=== PATIENT | female | born 1935 | race Caucasian/White ===

== ENCOUNTER 2016-12-03 19:01 | Inpatient (IN) | payer OTHER, MEDICAID ==
[~2016-12-03] VITALS: Ht 152.4 cm; Wt 82.3 kg
[2016-12-03] MEDS ORDERED: HYDR12.529 PO (19:07)
[2016-12-03 22:01] LABS: BASOPHILS % 0.4 % (0.0-2.0); HEMATOCRIT. 33.6 % (36.0-48.0); HEMOGLOBIN. 11.4 g/dL (12.0-16.0); LYMPHOCYTES % 7.2 % (20.0-50.0); MEAN CORPUSCULAR HEMOGLOBIN 28.7 pg (28.0-32.0); MEAN CORPUSCULAR VOLUME 84.8 fL (81.0-99.0); MEAN PLATELET VOLUME 7.9 fl (7.4-10.4); MONOCYTES % 9.5 % (2.0-8.0); NEUTROPHILS % 82.9 % (40.0-76.0); PLATELET 160 x1000/uL (130-400); RED BLOOD CELL COUNT 3.96 mill/uL (4.2-5.4); RED CELL DISTRIBUTION WIDTH 14.6 % (11.6-14.6)
[2016-12-03 22:12] LABS: CARBON DIOXIDE 24 mEq/L (21-32); CHLORIDE 98 mEq/L (98-107)
[2016-12-03 22:16] LABS: TROPONIN I 0.08 ng/mL (0.00-0.04)
[2016-12-03] MEDS ORDERED: SODIUM CHLORIDE 0.9% 1,000 ML IV ONE (23:29)
[2016-12-04] MEDS ORDERED: MORPHINE SULFATE 4 MG/ML CPJ (NOT FOR IM USE) IV ONE
[2016-12-04] MEDS ORDERED: ONDANSETRON HCL 4MG/2ML VIAL IV ONE
[2016-12-04] MEDS ORDERED: PROPOFOL 200MG/20ML VIAL IV NR (00:30)
[2016-12-04 01:34] LABS: CLARITY URINE CLOUDY (CLEAR); COLOR URINE YELLOW (YELLOW); GLUCOSE URINE NEGATIVE (NEGATIVE); KETONES URINE 1+ (NEGATIVE); LEUKOCYTE ESTERASE URINE 3+ (NEGATIVE); NITRITE URINE POSITIVE (NEGATIVE); OCCULT BLOOD URINE 2+ (NEGATIVE); PH URINE 5.5 (4.5-8.0); PROTEIN URINE 2+ (NEGATIVE); SPECIFIC GRAVITY URINE 1.018 (1.005-1.030)
[2016-12-04] MEDS ORDERED: CEFTRIAXONE 1 G PREMIX 50 ML IV ONE (05:45)
[2016-12-04 09:00] VITALS: BP 181/80
[2016-12-04] MEDS ORDERED: DOCUSATE SODIUM 100MG CAPSULE PO PRN (10:00)
[2016-12-04] MEDS ORDERED: DIPHENHYDRAMINE 50MG/ML VIAL IV PRN (10:00)
[2016-12-04] MEDS ORDERED: ONDANSETRON HCL 4MG/2ML VIAL IV PRN (10:00)
[2016-12-04] MEDS ORDERED: MAGNESIUM/ALUMINUM HYDROXIDE/SIMETHICONE 30ML UDC PO PRN (10:00)
[2016-12-04] MEDS ORDERED: NA PHOS,M-B/NA PHOS,DI-BA ENEMA 118ML PR PRN (10:00)
[2016-12-04] MEDS ORDERED: IPRATROPIUM/ALBUTEROL 0.5-3(2.5)MG/3ML NEB INH PRN (10:00)
[2016-12-04] MEDS ORDERED: NITROGLYCERIN 0.4MG TABLET SL SL PRN (10:00)
[2016-12-04] MEDS ORDERED: LORAZEPAM 2MG/ML CPJ IV PRN (10:00)
[2016-12-04] MEDS ORDERED: GUAIFENESIN 200MG/10ML SUGAR FREE UDC PO PRN (10:00)
[2016-12-04] MEDS: PANTOPRAZOLE SODIUM 40 MG/VIAL IV SCH (10:39)
[2016-12-04] MEDS: METOPROLOL TARTRATE 25MG TABLET PO SCH ×2 (10:39→20:20)
[2016-12-04] MEDS: LISINOPRIL 20MG TABLET PO SCH ×2 (10:40→20:20)
[2016-12-04] MEDS: TRAMADOL 50MG TABLET PO PRN (10:40)
[2016-12-04] MEDS: ZINC SULFATE 220 MG ( 50 ) CAPSULE PO SCH (10:40)
[2016-12-04] MEDS: ASPIRIN 325MG EC TABLET PO SCH (10:40)
[2016-12-04] MEDS: ACETAMINOPHEN 325MG TABLET PO PRN ×2 (10:41→20:27)
[2016-12-04] MEDS: ENOXAPARIN 40MG/0.4ML SYR SUBCUT SCH (10:43)
[2016-12-04 11:00] VITALS: BP 181/80
[2016-12-04 12:00] VITALS: BP 154/55
[2016-12-04] MEDS ORDERED: LEVOFLOXACIN 500MG PREMIX 100 ML IV NR ×2 (12:00→14:15)
[2016-12-04 15:54] LABS: CREATINE KINASE MB FRACTION 3.3 ng/mL (0.5-3.6); TROPONIN I 0.1 ng/mL (0.00-0.04)
[2016-12-04 16:00] VITALS: BP 111/91
[2016-12-04 20:00] VITALS: BP 196/92
[2016-12-04] MEDS: ASCORBIC ACID 500 MG TABLET PO SCH (20:20)
[2016-12-04] MEDS ORDERED: ZOLPIDEM TARTRATE 5MG TABLET PO PRN (21:00)
[2016-12-04] MEDS: CLONIDINE 0.1MG TABLET PO PRN (22:39)
[2016-12-04 23:11] LABS: CREATINE KINASE MB FRACTION 1.5 ng/mL (0.5-3.6); TROPONIN I 0.08 ng/mL (0.00-0.04)
[2016-12-05] VITALS: BP 166/83
[2016-12-05 04:00] VITALS: BP 148/71
[2016-12-05] MEDS: CLONIDINE 0.1MG TABLET PO PRN (04:20)
[2016-12-05] MEDS: CEFTRIAXONE 1 G PREMIX 50 ML IV SCH (05:18)
[2016-12-05 08:04] VITALS: BP 182/112
[2016-12-05] MEDS: PANTOPRAZOLE SODIUM 40 MG/VIAL IV SCH (08:47)
[2016-12-05] MEDS: LISINOPRIL 20MG TABLET PO SCH ×2 (08:48→20:33)
[2016-12-05] MEDS: ASCORBIC ACID 500 MG TABLET PO SCH ×2 (08:48→20:33)
[2016-12-05] MEDS: ASPIRIN 325MG EC TABLET PO SCH (08:48)
[2016-12-05] MEDS: METOPROLOL TARTRATE 25MG TABLET PO SCH ×2 (08:48→20:33)
[2016-12-05] MEDS: ZINC SULFATE 220 MG ( 50 ) CAPSULE PO SCH (08:48)
[2016-12-05] MEDS: ENOXAPARIN 40MG/0.4ML SYR SUBCUT SCH (08:49)
[2016-12-05 12:12] VITALS: BP 165/88
[2016-12-05] MEDS: LEVOFLOXACIN 250MG PREMIX 50 ML IV SCH (12:31)
[2016-12-05 17:31] VITALS: BP 160/78
[2016-12-05 20:00] VITALS: BP 179/73
[2016-12-06] VITALS: BP 166/75
[2016-12-06 04:00] VITALS: BP 169/84
[2016-12-06] MEDS: CEFTRIAXONE 1 G PREMIX 50 ML IV SCH (05:09)
[2016-12-06 07:41] VITALS: BP 183/80
[2016-12-06] MEDS: ZINC SULFATE 220 MG ( 50 ) CAPSULE PO SCH (08:17)
[2016-12-06] MEDS: ENOXAPARIN 40MG/0.4ML SYR SUBCUT SCH (08:17)
[2016-12-06] MEDS: PANTOPRAZOLE SODIUM 40 MG/VIAL IV SCH (08:17)
[2016-12-06] MEDS: ASPIRIN 325MG EC TABLET PO SCH (08:17)
[2016-12-06] MEDS: LISINOPRIL 20MG TABLET PO SCH ×2 (08:17→20:50)
[2016-12-06] MEDS: ASCORBIC ACID 500 MG TABLET PO SCH ×2 (08:17→20:49)
[2016-12-06] MEDS: METOPROLOL TARTRATE 25MG TABLET PO SCH ×2 (08:17→20:50)
[2016-12-06 11:40] VITALS: BP 190/82
[2016-12-06] MEDS: LEVOFLOXACIN 250MG PREMIX 50 ML IV SCH (11:57)
[2016-12-06] MEDS: CLONIDINE 0.1MG TABLET PO PRN (11:57)
[2016-12-06] MEDS ORDERED: LABE300T PO (14:17)
[2016-12-06 15:50] VITALS: BP 187/61
[2016-12-06] MEDS: AMLODIPINE 10MG TABLET PO SCH (18:45)
[2016-12-06 20:00] VITALS: BP 190/81
[2016-12-07] VITALS: BP 184/89
[2016-12-07] MEDS: CLONIDINE 0.1MG TABLET PO PRN (00:27)
[2016-12-07 04:00] VITALS: BP 183/86
[2016-12-07] MEDS: CEFTRIAXONE 1 G PREMIX 50 ML IV SCH (05:07)
[2016-12-07 08:12] VITALS: BP 166/76
[2016-12-07] MEDS: ENOXAPARIN 40MG/0.4ML SYR SUBCUT SCH (08:15)
[2016-12-07] MEDS: FAMOTIDINE 20MG/2ML VIAL IV SCH ×2 (08:15→20:53)
[2016-12-07] MEDS: METOPROLOL TARTRATE 25MG TABLET PO SCH ×2 (08:16→20:53)
[2016-12-07] MEDS: AMLODIPINE 10MG TABLET PO SCH (08:16)
[2016-12-07] MEDS: ZINC SULFATE 220 MG ( 50 ) CAPSULE PO SCH (08:16)
[2016-12-07] MEDS: ASCORBIC ACID 500 MG TABLET PO SCH ×2 (08:16→20:53)
[2016-12-07] MEDS: LISINOPRIL 20MG TABLET PO SCH ×2 (08:16→20:54)
[2016-12-07] MEDS: ASPIRIN 325MG EC TABLET PO SCH (08:16)
[2016-12-07] MEDS: LEVOFLOXACIN 250MG PREMIX 50 ML IV SCH (11:34)
[2016-12-07 12:00] VITALS: BP 135/46
[2016-12-07 16:00] VITALS: BP 145/60
[2016-12-07 20:00] VITALS: BP 149/127
[2016-12-08] VITALS: BP 190/96
[2016-12-08] MEDS: CLONIDINE 0.1MG TABLET PO PRN ×2 (01:17→11:41)
[2016-12-08 04:00] VITALS: BP 188/86
[2016-12-08] MEDS: CEFTRIAXONE 1 G PREMIX 50 ML IV SCH (06:05)
[2016-12-08 08:02] VITALS: BP 160/72
[2016-12-08] MEDS: ASCORBIC ACID 500 MG TABLET PO SCH (09:00)
[2016-12-08] MEDS: ZINC SULFATE 220 MG ( 50 ) CAPSULE PO SCH (09:00)
[2016-12-08] MEDS: METOPROLOL TARTRATE 25MG TABLET PO SCH (09:01)
[2016-12-08] MEDS: LISINOPRIL 20MG TABLET PO SCH (09:01)
[2016-12-08] MEDS: AMLODIPINE 10MG TABLET PO SCH (09:01)
[2016-12-08] MEDS: FAMOTIDINE 20MG/2ML VIAL IV SCH (09:01)
[2016-12-08] MEDS: ASPIRIN 325MG EC TABLET PO SCH (09:01)
[2016-12-08] MEDS: ENOXAPARIN 40MG/0.4ML SYR SUBCUT SCH (09:02)
[2016-12-08] MEDS: TRAMADOL 50MG TABLET PO PRN (09:14)
[2016-12-08 11:29] VITALS: BP 160/72
[2016-12-08] MEDS: LEVOFLOXACIN 250MG PREMIX 50 ML IV SCH (11:41)
[2016-12-08] MEDS: ACETAMINOPHEN 325MG TABLET PO PRN (11:41)
[2016-12-08 12:00] VITALS: BP 160/56
== END 2016-12-08 14:30 | disposition home or self-care (01) | DRG 872 ==
LOC: ER 19:20 → 6WST 12-04 05:40 → EDBEDREQSVC 12-04 05:42 → EDBEDREQ 12-04 05:42 → ENRESERV 12-04 07:00
PROVIDERS: ADMIT Internal Medicine; ATTEND Internal Medicine
DX: A41.51 Sepsis due to Escherichia coli [E. coli] (principal); N39.0 Urinary tract infection, site not specified; E87.1 Hypo-osmolality and hyponatremia; E44.1 Mild protein-calorie malnutrition; S43.004A Unspecified dislocation of right shoulder joint, initial encounter; I10 Essential (primary) hypertension; W01.0XXA Fall on same level from slipping, tripping and stumbling without subsequent striking against object, initial encounter; D63.8 Anemia in other chronic diseases classified elsewhere; E66.01 Morbid (severe) obesity due to excess calories; Y92.091 Bathroom in other non-institutional residence as the place of occurrence of the external cause; Y93.89 Activity, other specified; Y99.8 Other external cause status
CPT/HCPCS: 23650; 36415; 70450; 73020; 73030; 73060; 80053; 80061; 81001; 82550; 82553; 83036; 83605; 84484; 85025; 87040; 87077; 87086; 87186; 93005; 93306; 93970; 96365; 96375; 97162; 97166; 97530; 97535; 99285; A6261; C1893; C9113; J0696; J1650; J1956; J2270; J2405; J2704; J3490; J7030; J7050